=== PATIENT | female | born 1970 | race Caucasian/White ===

== ENCOUNTER → 2016-09-30 | Outpatient (CLI) | payer OTHER | END | disposition home or self-care (01) | LOC: GMAJ 14:11 | PROVIDERS: ATTEND Family Medicine | DX: E03.9 Hypothyroidism, unspecified (principal) ==

== ENCOUNTER → 2017-02-11 | Outpatient (CLI) | payer OTHER | END | disposition home or self-care (01) | LOC: GMAJ 14:47 | PROVIDERS: ATTEND Family Medicine | DX: E03.9 Hypothyroidism, unspecified (principal) ==

== ENCOUNTER → 2017-08-05 | Outpatient (CLI) | payer OTHER | END | disposition home or self-care (01) | LOC: GMAJ 17:58 | PROVIDERS: ATTEND Family Medicine | DX: E03.9 Hypothyroidism, unspecified (principal) ==

== ENCOUNTER → 2017-12-15 | Outpatient (CLI) | payer OTHER | LOC: GMAJ 11:11 | PROVIDERS: ATTEND Family Medicine | DX: E03.9 Hypothyroidism, unspecified (principal) ==

== ENCOUNTER → 2018-04-07 | Outpatient (CLI) | payer MEDICARE | LOC: GMAJ 14:45 | PROVIDERS: ATTEND Family Medicine | DX: E03.9 Hypothyroidism, unspecified (principal) ==

== ENCOUNTER → 2018-09-03 | Outpatient (CLI) | payer MEDICARE | LOC: GMAJ 14:49 | PROVIDERS: ATTEND Family Medicine | DX: E03.9 Hypothyroidism, unspecified (principal) ==

== ENCOUNTER → 2019-07-07 | Outpatient (CLI) | payer MEDICARE | LOC: GMAJ 14:28 | PROVIDERS: ATTEND Family Medicine | DX: E03.8 Other specified hypothyroidism (principal); E78.2 Mixed hyperlipidemia; I10 Essential (primary) hypertension; R30.0 Dysuria ==

== ENCOUNTER → 2020-05-09 | Outpatient (CLI) | payer MEDICARE | LOC: GMAJ 11:59 | PROVIDERS: ATTEND Family Medicine | DX: E03.8 Other specified hypothyroidism (principal); E78.2 Mixed hyperlipidemia; I10 Essential (primary) hypertension ==

== ENCOUNTER → 2020-09-07 | Outpatient (CLI) | payer MEDICARE | LOC: GMAJ 11:16 | PROVIDERS: ATTEND Family Medicine | DX: E03.8 Other specified hypothyroidism (principal); E78.2 Mixed hyperlipidemia; I10 Essential (primary) hypertension ==